=== PATIENT | female | born 1990 | race Caucasian/White ===

== ENCOUNTER 2025-09-02 08:37 | Emergency (ER) | payer BC ==
[~2025-09-02] VITALS: Ht 170.2 cm; Wt 64.6 kg
[2025-09-02 08:39] VITALS: TEMP 98.7
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
[2025-09-02] MEDS ORDERED: CYCL-1 PO (10:01)
[2025-09-02] MEDS ORDERED: NAPR-56 PO (10:01)
[2025-09-02] MEDS ORDERED: QUET25TA PO (10:01)
[2025-09-02 10:29] VITALS: BP 115/75; PULSE 79; RESP 14; O2SAT 99
== END 2025-09-02 10:30 | disposition home or self-care (01) ==
LOC: ER 08:38
DX: S80.12XA Contusion of left lower leg, initial encounter (principal); S80.11XA Contusion of right lower leg, initial encounter; Z88.1 Allergy status to other antibiotic agents; Z88.5 Allergy status to narcotic agent; Z79.899 Other long term (current) drug therapy; Z60.2 Problems related to living alone; Y04.8XXA Assault by other bodily force, initial encounter; Y93.89 Activity, other specified; Y92.89 Other specified places as the place of occurrence of the external cause; Y99.8 Other external cause status
CPT/HCPCS: 71045; 99283